=== PATIENT | female | born 2000 | race Two or more races ===

== ENCOUNTER 2020-03-03 13:32 | Inpatient (IN) | payer BC, MEDICAID ==
[~2020-03-03] VITALS: Ht 162.6 cm; Wt 52.7 kg
[2020-03-03] MEDS ORDERED: SODIUM CHLORIDE 0.9% 1,000 ML IV ONE (13:46)
[2020-03-03 14:21] LABS: Basophils # (auto) 0.1 10 ^3/uL (0-0.2); Basophils % (auto) 1.4 % (0.0-2.0); Eosinophils # (auto) 0 10 ^3/uL (0-0.8); Hematocrit 45.9 % (36.0-46.0); Hemoglobin 14.9 g/dL (12.2-16.2); Lymphocytes # (auto) 0.9 10 ^3/uL (0.4-5.4); Mean Corpuscular Hemoglobin 29.6 pg (28.0-32.0); Mean Corpuscular Hgb Conc. 32.5 g/dL (32.0-36.0); Mean Corpuscular Volume 91.2 fL (80.0-100.0); Monocytes # (auto) 0.3 10 ^3/uL (0-1.3); Monocytes % (auto) 6.6 % (0.0-12.0); Nucleated Red Blood Cells % 0.1 %; Platelet Count (auto) 395 10^3/uL (140-450); Red Blood Cells 5.03 10^6/uL (4.0-5.20); Red Cell Distribution Width 13.1 % (11.8-14.3); White Blood Cell 4.3 10^3/uL (4.4-10.8)
[2020-03-03 14:34] LABS: Albumin 4.4 g/dL (3.4-5.0); Calcium 8.6 mg/dL (8.5-10.1); Potassium 3.6 mmol/L (3.5-5.1)
[2020-03-03 14:36] LABS: BUN/Creatinine Ratio 7.8
[2020-03-03 14:39] LABS: Bilirubin, Total 0.7 mg/dL (0.2-1.0); Total Protein 8.5 g/dL (6.4-8.2)
[2020-03-03] MEDS ORDERED: ACETYLCYSTEINE PO FOR APAP TOX 200 MG/ML ML PO ONE ×2 (15:45→21:45)
[2020-03-03] MEDS ORDERED: ONDANSETRON HCL 4 MG/2 ML VIAL IV ONE (16:00)
[2020-03-03 16:13] LABS: Urine Bacteria FEW /hpf (None Seen); Urine Blood 3+ /uL (Negative); Urine Mucus MODERATE (None Seen); Urine WBC 11 /hpf (0 - 5)
[2020-03-03 16:24] LABS: Amphetamine Screen, Urine NEGATIVE (NEGATIVE); Barbiturate Scree,Urine NEGATIVE (NEGATIVE); Benzodiazephine Screen, Urine NEGATIVE (NEGATIVE); Cannabinoid Screen, Urine NEGATIVE (NEGATIVE); Cocaine Screen, Urine NEGATIVE (NEGATIVE); Opiate Scree,Urine NEGATIVE (NEGATIVE); Phencyclidine Screen, Urine NEGATIVE (NEGATIVE)
[2020-03-03] MEDS ORDERED: cefTRIAXone 1GM/50ML D5W 50 ML IV ONE (16:45)
[2020-03-03] MEDS ORDERED: MORPHINE SULF INJ 2 MG/ML SYRINGE 1ML IV PRN ×2 (18:15→22:00)
[2020-03-03] MEDS ORDERED: NITROGLYCERIN 0.4 MG SL TAB SL PRN ×2 (18:15→22:00)
[2020-03-03] MEDS ORDERED: PROCHLORPERAZINE EDISYLATE 5 MG/ML 2ML VIAL IV ONE (18:15)
[2020-03-03] MEDS ORDERED: ACETYLCYSTEINE IV ONE ×4 (19:00→20:30)
[2020-03-03] MEDS ORDERED: [UNRECOGNIZED DRUG - OTHER] IV ONE (19:00)
[2020-03-03] MEDS ORDERED: D5W 5% IV ONE ×2 (19:13→20:30)
[2020-03-03] MEDS ORDERED: ONDANSETRON HCL 4 MG/2 ML VIAL IV PRN (22:00)
[2020-03-03] MEDS ORDERED: PANTOPRAZOLE 40 MG/10 ML VIAL INJ IV ONE (22:00)
[2020-03-03] MEDS ORDERED: LORazepam 2MG/ML-1ML VIAL IV PRN (22:00)
[2020-03-03] MEDS ORDERED: ALUM & MAG HYDROX-SIMETH LIQ(MAALOX) 30 ML PO PRN (22:00)
[2020-03-03] MEDS ORDERED: DOCUSATE SOD 100 MG CAP PO PRN (22:00)
[2020-03-03] MEDS ORDERED: FUROSEMIDE 20 MG/2 ML VIAL IV ONE (22:00)
[2020-03-03] MEDS ORDERED: FUROSEMIDE 20 MG/2 ML VIAL IV SCH (22:21)
[2020-03-03] MEDS: SODIUM CHLORIDE 0.9% 1,000 ML IV SCH (23:23)
[2020-03-04] MEDS ORDERED: ACETYLCYSTEINE 200MG/ML IV SOL 4,500 MG in D5W 5% 1,000 ML IV ONE (00:30)
[2020-03-04] MEDS ORDERED: ACETYLCYSTEINE PO FOR APAP TOX 200 MG/ML ML PO SCH (02:00)
[2020-03-04 05:44] LABS: Basophils # (auto) 0.1 10 ^3/uL (0-0.2); Eosinophils # (auto) 0 10 ^3/uL (0-0.8); Eosinophils % (auto) 0.1 % (0.0-7.0); Hematocrit 37.5 % (36.0-46.0); Hemoglobin 12.6 g/dL (12.2-16.2); Lymphocytes # (auto) 1.7 10 ^3/uL (0.4-5.4); Lymphocytes % (auto) 26.8 % (10.0-50.0); Mean Corpuscular Hgb Conc. 33.5 g/dL (32.0-36.0); Mean Corpuscular Volume 89.6 fL (80.0-100.0); Monocytes # (auto) 0.4 10 ^3/uL (0-1.3); Monocytes % (auto) 7.1 % (0.0-12.0); Neutrophils # (auto) 4.1 10 ^3/uL (1.6-8.6); Nucleated Red Blood Cells % 0.1 %; Platelet Count (auto) 303 10^3/uL (140-450); Red Blood Cells 4.19 10^6/uL (4.0-5.20); White Blood Cell 6.3 10^3/uL (4.4-10.8)
[2020-03-04 05:59] LABS: INR 1.32 (0.9-1.15); Partial Thromboplastin Time 29.1 sec (23.64-32.05)
[2020-03-04] MEDS: SODIUM CHLORIDE 0.9% 1,000 ML IV SCH ×3 (06:00→22:00)
[2020-03-04 06:22] LABS: Potassium 3.3 mmol/L (3.5-5.1)
[2020-03-04 06:30] LABS: Albumin 3.3 g/dL (3.4-5.0); BUN/Creatinine Ratio 7.5; Bilirubin, Total 0.8 mg/dL (0.2-1.0); Calcium 8.1 mg/dL (8.5-10.1); Magnesium 2.4 mg/dL (1.6-2.6); Phosphorus 2.6 mg/dL (2.5-4.90); Total Protein 6.5 g/dL (6.4-8.2)
[2020-03-04] MEDS: PANTOPRAZOLE 40 MG/10 ML VIAL INJ IV SCH (10:18)
[2020-03-04] MEDS ORDERED: LORazepam 2MG/ML-1ML VIAL ONE (10:42)
[2020-03-04] MEDS ORDERED: chlordiazePOXIDE HCL 5 MG CAP PO PRN (15:30)
--- NOTE | 2020-03-04 20:00 | NUR ---
Telemetry admit from ER LARA ECHOLS admitted to Telemetry unit after SBAR received. Patient oriented to MEILY MONTEJO, RN primary RN, unit, room, bed, and unit policies regarding patient care and visiting hours. Patient now on continuous telemetry monitoring, tele box # [id number] and telemetry reading on arrival to unit is SR 85BPM. Patient weighed by bedscale and encouraged to call if they need something. All questions and concerns addressed, patient verbalized understanding. call light within reach and bed in low position. sitter at bedside
--- NOTE | 2020-03-04 20:37 | NUR ---
IV removal IV DC'd to left ac with clean sterile technique, catheter fully intact. Pressure dressing applied to site. Patient tolerated well.
--- NOTE | 2020-03-04 22:30 | NUR ---
POISON CONTROL: SPOKE WITH POISON CONTROL [facility] UPDATE ON PATIENT LABS AND CONDITION PROVIDED. PER [facility] RECENT ALT AND AST ARE NEEDED FOR PATIENT TO BE MEDICALLY CLEARED BY POISON CONTROL. WILL NOTIFY HOSPITALIST PER PAGING HOURS.
[2020-03-04 23:48] VITALS: BP 104/70
--- NOTE | 2020-03-05 | NUR ---
HOSPITALIST KRISHNA, POISON CONTROL [facility] REQUESTING NEW SET OF AST AND ALT LABS FOR PATIENT TO BE CLEARED BY POISON CONTROL. AWAITING CALL BACK
--- NOTE | 2020-03-05 00:37 | NUR ---
SPOKE WITH HOSPITALIST. NEW ORDERS RECEIVED FOR AST/ALT LABS. ORDERS READ BACK AND VERIFIED BY TRELL FOLEY
[2020-03-05 01:38] LABS: Alanine Aminotransferase 23 U/L (13-56); Aspartate Aminotransferase 10 U/L (15-37)
--- NOTE | 2020-03-05 01:45 | NUR ---
poison control spoke with kaur and updated on patient status and lab values AST and ALT. per kaur, number [phone], no further recommendations.
[2020-03-05] MEDS: SODIUM CHLORIDE 0.9% 1,000 ML IV SCH ×2 (05:15→14:49)
[2020-03-05 06:00] VITALS: BP 106/65
--- NOTE | 2020-03-05 07:15 | NUR ---
report given to dayshift rn patient denies sob distress or pain. sitter at bedside
--- NOTE | 2020-03-05 08:00 | NUR ---
OPENING SHIFT NOTE ASSUMED CARE OF PATIENT AWAKE AND ALERT. NO S/S OF DISTRESS NOTED OR COMPLAINTS OF PAIN. AT THIS TIME PATIENT IS DENYING ANY SUICIDAL IDEATIONS AND EXPRESSES A DESIRE TO DISCHARGE TODAY BACK TO HER PREVIOUS LIVING ARRANGEMENTS. PATIENT UPDATED ON POC FOR THE DAY INCLUDING A TELEPSYCH CONSULT. ALL QUESTIONS ANSWERED. BED IS IN LOWEST, LOCKED POSITION WITH SIDE RAILS UP 2, CALL LIGHT WITHIN REACH, AND SITTER AT BEDSIDE FOR SAFETY. WILL CONTINUE TO MONITOR Q1H AND PRN.
[2020-03-05 08:25] LABS: Basophils # (auto) 0.1 10 ^3/uL (0-0.2); Basophils % (auto) 1.8 % (0.0-2.0); Eosinophils # (auto) 0 10 ^3/uL (0-0.8); Eosinophils % (auto) 0.8 % (0.0-7.0); Hematocrit 39.3 % (36.0-46.0); Hemoglobin 13.1 g/dL (12.2-16.2); Lymphocytes % (auto) 25.2 % (10.0-50.0); Mean Corpuscular Hemoglobin 29.9 pg (28.0-32.0); Mean Corpuscular Hgb Conc. 33.3 g/dL (32.0-36.0); Mean Corpuscular Volume 89.9 fL (80.0-100.0); Monocytes # (auto) 0.3 10 ^3/uL (0-1.3); Monocytes % (auto) 7.1 % (0.0-12.0); Neutrophils # (auto) 2.5 10 ^3/uL (1.6-8.6); Neutrophils % (auto) 65.1 % (37.0-80.0); Platelet Count (auto) 306 10^3/uL (140-450); Red Blood Cells 4.37 10^6/uL (4.0-5.20); Red Cell Distribution Width 13.3 % (11.8-14.3); White Blood Cell 3.9 10^3/uL (4.4-10.8)
[2020-03-05 08:39] LABS: INR 1.2 (0.9-1.15); Partial Thromboplastin Time 27.7 sec (23.64-32.05)
[2020-03-05 08:46] LABS: Albumin 3.7 g/dL (3.4-5.0); Calcium 8.5 mg/dL (8.5-10.1); Potassium 3.1 mmol/L (3.5-5.1)
[2020-03-05 08:50] LABS: BUN/Creatinine Ratio 4.4; Bilirubin, Total 0.8 mg/dL (0.2-1.0); Total Protein 7.1 g/dL (6.4-8.2)
[2020-03-05 09:00] VITALS: BP 121/62
[2020-03-05] MEDS ORDERED: POTASSIUM CHL 20 Meq TABLET PO ONE (09:30)
[2020-03-05] MEDS: PANTOPRAZOLE 40 MG/10 ML VIAL INJ IV SCH (09:46)
--- NOTE | 2020-03-05 11:22 | NUR ---
TELEPSYCH NEW CONSULT CALLED IN TO [facility] AT . MACHINE IS SET UP IN THE ROOM AND PATIENT IS WAITING CALL FROM PROVIDER.
[2020-03-05 13:00] VITALS: BP 119/61
== END 2020-03-05 15:40 | disposition home or self-care (01) | DRG 917 ==
LOC: EDBD 13:32 → ER 13:32 → TELE 13:33 → TELE-WESTW 03-04 20:00
PROVIDERS: ADMIT Hospitalist; ATTEND Internal Medicine
DX: T39.1X2A Poisoning by 4-Aminophenol derivatives, intentional self-harm, initial encounter (principal); N17.0 Acute kidney failure with tubular necrosis; G92 Toxic encephalopathy; K29.20 Alcoholic gastritis without bleeding; F41.9 Anxiety disorder, unspecified; F17.200 Nicotine dependence, unspecified, uncomplicated; F12.90 Cannabis use, unspecified, uncomplicated; F10.129 Alcohol abuse with intoxication, unspecified; E86.0 Dehydration; E87.6 Hypokalemia; Y92.89 Other specified places as the place of occurrence of the external cause; Z83.3 Family history of diabetes mellitus; Z91.5 Personal history of self-harm
CPT/HCPCS: 36415; 76801; 76817; 80053; 80307; 80320; 80329; 81001; 83735; 84100; 84450; 84460; 84702; 85025; 85610; 85730; 87086; 93005; C9113; G0378; J0696; J2405; J7060